=== PATIENT | male | born 1960 | race African-American/Black ===

== ENCOUNTER 2018-07-07 12:41 | Inpatient (IN) | payer OTHER, SELFPAY ==
[2018-07-07] MEDS ORDERED: Adacel (T-DAP) 0.5 ML VIAL ONE (13:01)
[2018-07-07] MEDS ORDERED: Dexamethasone 20 MG/5 ML VIAL ONE (13:06)
[2018-07-07] MEDS ORDERED: PROPOFOL 200 MG/20 ML VIAL ONE (13:06)
[2018-07-07] MEDS ORDERED: Ketorolac Tromethamine 30 MG/ML VIAL ONE (13:06)
[2018-07-07] MEDS ORDERED: Metoprolol Tartrate 5 MG/5 ML VIAL ONE (13:06)
[2018-07-07] MEDS ORDERED: Lidocaine 1% PF 5 ML VIAL ONE (13:06)
[2018-07-07] MEDS ORDERED: Ondansetron HCl/PF 4 MG/2 ML Vial ONE (13:06)
[2018-07-07] MEDS ORDERED: Fentanyl 100 MCG/2 ML VIAL ONE ×2 (13:10→20:47)
[2018-07-07] MEDS ORDERED: CEFAZOLIN/Water 2 GM/20 ML SYRINGE SLOW IVP SCH (13:15)
[2018-07-07 13:28] LABS: ALT (SGPT) 20 U/L (8-55); AST (SGOT) 26 U/L (5-34); Albumin 4.2 g/dL (3.5-5.0); Alkaline Phosphatase 70 U/L (40-150); Anion Gap 18 mmol/L (10-20); BUN (Urea Nitrogen) 16 mg/dL (8.4-25.7); Bilirubin, Total 1.6 mg/dL (0.2-1.2); Calc. Creatinine Clearance 0 mL/min (70-130); Calcium 9.2 mg/dL (7.8-10.44); Carbon Dioxide 18 mmol/L (22-29); Chloride 104 mmol/L (98-107); Estimated GFR-MDRD 46; Glucose 114 mg/dL (70-105); Potassium 3.4 mmol/L (3.5-5.1); Protein, Total 7.2 g/dL (6.0-8.3); Sodium 137 mmol/L (136-145)
[2018-07-07 13:29] LABS: CKMB 5.4 ng/mL (0-6.6); Troponin I Less than 0.010 ng/mL (< 0.028)
[2018-07-07] MEDS ORDERED: Gentamicin 80 MG/2 ML VIAL ONE (13:29)
[2018-07-07 13:42] LABS: PTT 26.6 SEC (22.9-36.1); Prothrombin Time 13.5 SEC (12.0-14.7)
[2018-07-07 13:43] LABS: #Eosinphils 0.1 thou/uL (0.0-0.7); #Lymphocytes 1.3 thou/uL (1.20-3.40); #Monocytes 0.7 thou/uL (0.11-0.59); #Neutrophils 6.6 thou/uL (1.40-6.50); %Basophils 0.2 % (0.0-1.0); %Monocytes 7.8 % (0.0-10.0); %Neutrophils 75.9 % (42.0-75.0); Mean Corpuscular HGB CONC 34.4 g/dL (32.0-36.0); Mean Corpuscular Hemoglobin 30.9 pg (27.0-31.0); Mean Corpuscular Volume 89.9 fL (78.0-98.0); Mean Platelet Volume 6.9 fL (7.4-10.4); Platelet Count 278 thou/uL (130-400); Red Blood Cell (RBC) Count 4.54 mill/uL (4.70-6.10); White Blood Cell (WBC) Count 8.7 thou/uL (4.8-10.8)
--- NOTE | 2018-07-07 13:48 | RAD ---
2 VIEWS LEFT FOREARM: Date: 07/07/18 HISTORY: Left forearm injury. FINDINGS: No fracture or dislocation is seen involving the left forearm. There is subcutaneous emphysema, as we ll as soft tissue defect seen involving the medial aspect of the left wrist, which has the appearance of laceration. No definite acute osseous abnormality is seen on this exam. Tiny olecranon enthesophy te is noted. IMPRESSION: 1. No acute osseous abnormality left forearm. 2. Laceration and soft tissue defect involving the subcutaneous soft tissues at the level of the med ial wrist. POS: [facility]
[2018-07-07 14:08] LABS: Bilirubin Negative (Negative); Blood, Urine Negative (Negative); Clarity CLEAR (Clear); Glucose, Urine (Dipstick) 100 mg/dL (Negative); Leukocyte Small (Negative); Nitrite Negative (Negative); Protein, Urine (Dipstick) Negative (Neg-Trace); Specific Gravity, Urine 1.009 (1.002-1.036); pH, Urine 6.5 (5.0-9.0)
[2018-07-07 14:11] LABS: Bacteria/HPF None Seen HPF (None Seen); RBC/HPF 0-3 HPF (0-3); Squamous Epithelial 0-3 HPF (0-3)
[2018-07-07 14:16] LABS: Pathc Cast-AUWi Flag 3.92 (0-2.49)
[2018-07-07 14:17] LABS: Hyaline Casts/LPF NONE SEEN LPF (0-3 Hyaline); Manual Microscopic Reviewed? No Path Casts Seen
[2018-07-07] MEDS ORDERED: hydrALAZINE 20 MG/ML VIAL ONE (14:44)
--- NOTE | 2018-07-07 15:08 | RAD ---
3 VIEWS LEFT WRIST: Date: 07/07/18 HISTORY: Trauma. Pain. FINDINGS: There appears to be irregularity and injury involving the proximal carpal row at the level of the tri quetral bone. Evaluation is somewhat limited. There appears to be a soft tissue injury with subcutane ous emphysema. Distal carpal row suggests possible hamate bone injury. IMPRESSION: Possible triquetral and hamate bone injury. Better interrogation with CT is recommended. There is ass ociated subcutaneous emphysema likely due to soft tissue injury. POS: [facility]
[2018-07-07] MEDS ORDERED: Morphine 4 MG/ML VIAL SLOW IVP PRN ×2 (15:43→16:42)
[2018-07-07] MEDS ORDERED: Ondansetron HCl/PF 4 MG/2 ML Vial IVP PRN ×2 (15:43→20:43)
[2018-07-07] MEDS ORDERED: Communication Order-Pharmacy FS PRN (15:43)
[2018-07-07] MEDS ORDERED: Hetastarch 6% 500 ML 0 ML ONE (16:15)
[2018-07-07] MEDS ORDERED: Betamet Acet/Betamet Na Ph 30 MG/5 ML VIAL ONE (16:15)
[2018-07-07] MEDS ORDERED: Bacitracin Zinc Ointment 30 gm TUBE ONE (16:15)
[2018-07-07] MEDS ORDERED: Sodium Chloride 0.9% 30 ML ONE (16:15)
[2018-07-07] MEDS ORDERED: Bupivacaine PF 0.5% 30 ML VIAL ONE (16:15)
[2018-07-07] MEDS ORDERED: Heparin 10,000 UNITS/1 ML VIAL ONE (16:15)
[2018-07-07] MEDS: Sodium Chloride 0.9% 1,000 ML IV SCH (16:21)
[2018-07-07 16:26] VITALS: BMI 26.2
[2018-07-07] MEDS ORDERED: Acetaminophen 500 MG TAB PO SCH (16:45)
[2018-07-07] MEDS ORDERED: Sodium Chloride 0.9% 20 ML ONE (17:26)
[2018-07-07] MEDS: traMADol HCl 50 MG TAB PO SCH (17:44)
[2018-07-07] MEDS: Acetaminophen 1,000 MG in Premix Bag 1 BAG IVPB SCH (17:44)
[2018-07-07] MEDS ORDERED: CEFAZOLIN/Water 2 GM/20 ML SYRINGE ONE (18:04)
--- NOTE | 2018-07-07 18:29 | HP-2 ---
DATE OF ADMISSION: 07/07/2018 REQUESTING PHYSICIAN: Dr. Caceres. ATTENDING SURGEON: Dr. Aldana. CONSULTATION: Dr. Angeles. 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 He states that he does not remember what happene d. When he was cutting the wood the next moment he had cut his left hand. States that he had immedi ate pain and went to the ER. On route, he received 10 mg of morphine and in the ER, he received 75 m cg of fentanyl. He currently reports minimal pain in that hand. PHYSICAL EXAMINATION: VITAL SIGNS: Upon admission to ER, blood pressure 151/103, pulse 58, respirations 16, temperature 97 .7, O2 98% on room air. Current vital signs: Blood pressure 177/108, pulse 86, respirations 15, tem perature 98.3, O2 sat 97 on room air. GENERAL: The patient is lying in bed, in no acute distress. HEENT: Normocephalic, atraumatic. EOMI, PERRLA bilaterally. Ears are atraumatic. Nose is atraumat ic. Oropharynx is clear. LUNGS: Clear to auscultation with no respiratory distress. No trauma or injury noted on the chest. CARDIOVASCULAR: Regular rate and rhythm with no murmurs. ABDOMEN: Soft, nontender with bowel sounds present. MUSCULOSKELETAL: Patient has full range of motion in all 4 extremities with the exception of no exte nsion in his left hand, left fingers. EXTREMITIES: Neurovascularly intact x4. Cap refill is present in all 5 digits of his left hand. On his left forearm, there is a laceration involving the extensor tendons, currently bandaged. BACK: Atraumatic with normal range of motion. LABORATORY DATA: CBC: White blood cell count is 8.7, hemoglobin 14.0, hematocrit 40.8, MCV 89.9, pl atelet count 278. PT is 13.5, INR 1.0, aPTT 26.6. Sodium 137, potassium 3.4, chloride 104, bicarbon ate 18, BUN 16, creatinine 1.84 with no baseline to compare to. Glucose is 114, CK-MB is 5.4. Tropo shan is less than 0.010. His urine is positive for glucose, ketones, leukocyte esterase, white blood cells, no bacteria seen. RADIOGRAPHIC FINDINGS: Two view of the left forearm shows no acute osseous abnormality of the forear m, laceration of soft tissue defect involving the subcutaneous soft tissues at the level of the media l wrist. Forearm x-ray three-view shows possible triquetral and hamate bone injury. CT recommended if there is suspicion. ASSESSMENT: 1. Status post traumatic injury with circular saw. 2. Laceration involving flexor tendons of the left forearm. 3. Acute pain related to trauma. 4. History of hypertension. 5. History of depression. PLAN: We will admit to the Surgery team. Patient will undergo orthopedic surgery with Dr. Angeles later today. We will control his pain. Provide deep vein thrombosis and gastrointestinal prophylaxi s. We also have OT and PT evaluate and treat the patient. Dr. Aldana saw this patient. We discussed the treatment plan.
[2018-07-07] MEDS ORDERED: Midazolam HCl 2 mg/2 ml Vial ONE (20:47)
[2018-07-07] MEDS ORDERED: Sodium Chloride 0.9% 10 ML ONE (22:37)
[2018-07-08] MEDS ORDERED: Ketorolac Tromethamine 30 MG/ML VIAL ONE (00:42)
[2018-07-08] MEDS ORDERED: Meperidine HCl/PF 25 MG/ML VIAL IM PRN (01:09)
[2018-07-08] MEDS ORDERED: Ketorolac Tromethamine 30 MG/ML VIAL IVP PRN (01:09)
[2018-07-08] MEDS ORDERED: Milk Of Magnesia 30 ML UDCUP PO PRN (01:10)
[2018-07-08] MEDS ORDERED: Ondansetron HCl/PF 4 MG/2 ML Vial IV PRN (01:10)
[2018-07-08] MEDS ORDERED: Bisacodyl 10 MG SUPP PR PRN (01:10)
[2018-07-08] MEDS ORDERED: Communication Order-Pharmacy FS PRN (01:15)
[2018-07-08] MEDS: Acetaminophen 1,000 MG in Premix Bag 1 BAG IVPB SCH ×2 (01:40→05:05)
[2018-07-08] MEDS: Sodium Chloride 0.9% 1,000 ML IV SCH ×4 (01:40→20:52)
[2018-07-08] MEDS: traMADol HCl 50 MG TAB PO SCH ×5 (01:41→23:31)
[2018-07-08] MEDS: Vancomycin HCl 1.25 GM in Sodium Chloride 0.9% 250 ML 250 ML IVPB SCH (01:50)
[2018-07-08 05:42] LABS: #Basophils 0.1 thou/uL (0.0-0.2); #Lymphocytes 0.3 thou/uL (1.20-3.40); #Monocytes 0.2 thou/uL (0.11-0.59); #Neutrophils 7.4 thou/uL (1.40-6.50); %Basophils 1.3 % (0.0-1.0); %Eosinophils 0.1 % (0.0-10.0); %Lymphocytes 3.7 % (21.0-51.0); %Monocytes 2.9 % (0.0-10.0); %Neutrophils 92.1 % (42.0-75.0); Hemoglobin 13.1 g/dL (14.0-18.0); Mean Corpuscular HGB CONC 33.7 g/dL (32.0-36.0); Mean Corpuscular Hemoglobin 30.7 pg (27.0-31.0); Mean Corpuscular Volume 91.2 fL (78.0-98.0); Platelet Count 243 thou/uL (130-400); Red Blood Cell (RBC) Count 4.26 mill/uL (4.70-6.10)
[2018-07-08 06:07] LABS: ALT (SGPT) 16 U/L (8-55); AST (SGOT) 17 U/L (5-34); Albumin 3.6 g/dL (3.5-5.0); Alkaline Phosphatase 65 U/L (40-150); Anion Gap 12 mmol/L (10-20); BUN (Urea Nitrogen) 14 mg/dL (8.4-25.7); Bilirubin, Total 0.9 mg/dL (0.2-1.2); Calc. Creatinine Clearance 68 mL/min (70-130); Calcium 8.2 mg/dL (7.8-10.44); Carbon Dioxide 23 mmol/L (22-29); Chloride 104 mmol/L (98-107); Estimated GFR-MDRD 61; Globulin 2.7 g/dL (2.4-3.5); Glucose 132 mg/dL (70-105); Protein, Total 6.3 g/dL (6.0-8.3); Sodium 135 mmol/L (136-145)
--- NOTE | 2018-07-08 07:37 | RAD ---
SIX FLUOROSCOPIC SPOT IMAGES OF THE LEFT WRIST: INDICATION: Left hand fracture and tendon repair. COMPARISON: Left wrist radiograph 07/07/18. FINDINGS: The minimally displaced fractures involving the left triquetrum and left hamate are unchanged from th e radiographic evaluation. Extensive soft tissue maceration overlying the ulnar aspect of the wrist carpus, likely from a full-thickness laceration, is similar appearing. Subsequent images in the fluo roscopic series demonstrate placement of a suture anchor within the lateral base of the small finger metacarpal likely for tendon reattachment. IMPRESSION: 1. Fluoroscopic C-arm images for tendon repair to the base of the small finger metacarpal. 2. Minimally displaced fractures of the triquetrum and hamate appear similar to the radiographic juan antonio luation dated 07/07/18. POS: [facility]
[2018-07-08] MEDS: Famotidine/PF 20 mg/2ml Vial SLOW IVP SCH (08:42)
[2018-07-08] MEDS ORDERED: Vancomycin HCl 1 GM in Premix Bag 1 BAG IVPB SCH (09:00)
[2018-07-08] MEDS ORDERED: TETANUS AND DIPHTHERIA TOX/PF 0.5 ML DISP.SYRIN IM SCH (09:00)
[2018-07-08] MEDS ORDERED: Aspirin 81 mg Enteric Coated Tablet PO SCH (09:00)
[2018-07-08] MEDS ORDERED: Amlodipine 5 MG TAB PO SCH (09:00)
[2018-07-08] MEDS ORDERED: Non-Formulary Item 1 EACH (Amlodipine Besylate [Amlodipine Besylate] 2.5 MG) PO SCH (09:00)
[2018-07-08] MEDS: Acetaminophen 500 MG TAB PO SCH ×3 (10:09→20:49)
[2018-07-08] MEDS: Lisinopril 20 MG TAB PO SCH (10:09)
[2018-07-08] MEDS: Senokot 8.6 MG TAB PO SCH ×2 (10:09→20:50)
[2018-07-08] MEDS: Finasteride 5 MG TAB PO SCH (10:09)
[2018-07-08] MEDS: Hydrochlorothiazide 25 MG TAB PO SCH (10:10)
[2018-07-08] MEDS: Gabapentin 300 MG CAP PO SCH ×3 (10:10→20:49)
[2018-07-08] MEDS: Citalopram 20 MG TAB PO SCH (10:10)
[2018-07-08] MEDS: Enoxaparin Sodium 40 MG/0.4 ML SYRINGE SC SCH (10:10)
[2018-07-08] MEDS: Polyethylene Glycol 3350 17 GM Packet PO SCH (10:12)
--- NOTE | 2018-07-08 13:49 | PRG-2 ---
DATE OF SERVICE: 07/08/2018 SUBJECTIVE: This is a 57-year-old male, hospital day 1, postoperative day 1 washout and repair of left forearm injury secondary to a skill saw. The patient reports that he is currentl y pain free. He is able to move his hand. The patient denies any chest pain, any trouble breathing, nausea, vomiting or belly pain. PHYSICAL EXAMINATION: VITAL SIGNS: Temperature 98.0, respirations 18, pulse 69, O2 sat 95, BP 172/106. GENERAL: The patient is lying back in bed in no acute distress. CARDIOVASCULAR: Regular rate and rhythm with no murmurs. LUNGS: Clear to auscultation with no respiratory distress. MUSCULOSKELETAL: The patient's left hand is currently bandaged. The patient has movement in his lef t hand, both flexion and extension. Currently, the patient's hand is splinted in extension. EXTREMITIES: The patient is neurovascularly intact x4. Cap refill less than 2 seconds in all 4 extr emities. LABORATORY DATA: White blood cell count 8.0, hemoglobin 13.1, hematocrit 38.8, MCV 91.2, platelets 2 43. Sodium 135, potassium 4.0, chloride 104, bicarbonate 23, BUN 14, creatinine 1.44, glucose 132. ASSESSMENT: 1. Status post traumatic injury with circular saw. 2. Laceration involving flexor tendons as well as cubital bones, postoperative day 1 washout and rep air. 3. Acute pain relative to above, controlled. 4. History of hypertension. 5. History of depression. 6. Acute kidney injury, improving. PLAN: The patient's blood pressure was elevated this morning. We are continuing his blood pressure medications and we will reevaluate. We will continue providing pain control and supportive care. Th e patient is on deep venous thrombosis and gastrointestinal prophylaxis. Dr. Aldana saw this patient. We discussed the treatment plan.
[2018-07-09] MEDS: Vancomycin HCl 1.25 GM in Sodium Chloride 0.9% 250 ML 250 ML IVPB SCH (02:08)
[2018-07-09] MEDS: Acetaminophen 500 MG TAB PO SCH ×4 (02:08→21:56)
[2018-07-09] MEDS: traMADol HCl 50 MG TAB PO SCH ×4 (05:36→23:49)
[2018-07-09] MEDS: Sodium Chloride 0.9% 1,000 ML IV SCH (05:37)
[2018-07-09 07:35] LABS: Anion Gap 10 mmol/L (10-20); BUN (Urea Nitrogen) 7 mg/dL (8.4-25.7); Calc. Creatinine Clearance 113 mL/min (70-130); Carbon Dioxide 26 mmol/L (22-29); Chloride 106 mmol/L (98-107); Estimated GFR-MDRD Greater than 90; Glucose 86 mg/dL (70-105); Potassium 3.4 mmol/L (3.5-5.1); Sodium 139 mmol/L (136-145)
[2018-07-09] MEDS ORDERED: Amlodipine 5 MG TAB PO SCH (08:19)
[2018-07-09] MEDS: Lisinopril 20 MG TAB PO SCH (08:26)
[2018-07-09] MEDS: Famotidine/PF 20 mg/2ml Vial SLOW IVP SCH (08:26)
[2018-07-09] MEDS: Hydrochlorothiazide 25 MG TAB PO SCH (08:26)
[2018-07-09] MEDS: Enoxaparin Sodium 40 MG/0.4 ML SYRINGE SC SCH (08:26)
[2018-07-09] MEDS: Amlodipine 10 MG TAB PO SCH (08:27)
[2018-07-09] MEDS: Finasteride 5 MG TAB PO SCH (08:27)
[2018-07-09] MEDS: Gabapentin 300 MG CAP PO SCH ×3 (08:27→21:56)
[2018-07-09] MEDS: Senokot 8.6 MG TAB PO SCH ×2 (08:27→21:56)
[2018-07-09] MEDS: Citalopram 20 MG TAB PO SCH (08:31)
[2018-07-09] MEDS: Polyethylene Glycol 3350 17 GM Packet PO SCH (08:32)
--- NOTE | 2018-07-09 10:58 | OP ---
DATE OF PROCEDURE: The procedure began on 07/07/2018 and finished after midnight on 07/08/2018. PREOPERATIVE DIAGNOSES: 1. Left hand saw injury with a 15 cm wound. 2. Left extensor digitorum comminus to the index, middle, ring, and small finger, extensor indicis p roprius, extensor digiti minimus, small finger intrinsic, and extensor carpal ulnaris laceration. 3. Left small finger superficial ulnar nerve laceration, superficial ulnar nerve and radial nerve la ceration. 4. Open fracture of triquetrum capitate and hamate secondary to compression from the saw, incomplete . 5. Open wrist joint, mid carpal joint, and retinaculum lacerations. POSTOPERATIVE DIAGNOSES: 1. Left hand saw injury with a 15 cm wound. 2. Left extensor digitorum comminus to the index, middle, ring, and small finger, extensor indicis p roprius, extensor digiti minimus, small finger intrinsic, and extensor carpal ulnaris laceration. 3. Left small finger superficial ulnar nerve laceration, superficial ulnar nerve and no superficial radial nerve laceration. 4. Open fracture of triquetrum capitate and hamate secondary to compression from the saw and complet e. 5. Open wrist joint, mid carpal joint, and retinaculum lacerations. PROCEDURES PERFORMED: 1. Debridement of 15 cm wound. 2. Closure complex 15 cm wound. 3. Debridement of material associated with open fracture for the capitate, hamate and triquetrum. 4. Debridement of wrist joint deep. 5. Repair of the wrist joint capsule. 6. Repair mid carpal joint capsule. 7. Retinaculum repair. 8. Open treatment of fractured triquetrum. 9. Open treatment of fracture capitate. 10. Open treatment of fractured hamate. 11. Superficial radial nerve neuroplasty under microscope. 12. Superficial ulnar nerve neuroplasty, microscopic. 13. Superficial ulnar nerve repair, microscopic. 14. Left extensor digitorum comminus to the index finger repair. 15. Left middle finger extensor digitorum comminus repair. 16. Left ring finger extensor digitorum comminus repair. 17. Left small finger extensor digitorum comminus repair. 18. Left extensor indices proprius repair. 19. Left extensor digiti minimus small finger repair. 20. Left small finger intrinsic repair. 21. Left extensor carpi ulnaris repair. 22. Application of splint. 23. C-arm supervision for approximately 2 hours. SURGEON: Dr. Cr Angeles ANESTHESIA: Faroese Anesthesia. SPECIMENS REMOVED: Small amount of debris and some chondral poor species from the compression fractu re from the saw in the mid carpal bones. ESTIMATED BLOOD LOSS: 25 mL. TOURNIQUET TIME: 116 minutes at 250 mmHg pressure. DESCRIPTION OF PROCEDURE: After successful general LMA technique, the limb was prepped and draped. The patient had timeout done appropriately and the consent matched the injury which matched the histo ry and physical. We then immediately prepped and draped the limb, and outlined a zigzag incision to maximize extension where we took the distal wound radially and the proximal wound from radial to ulna r. We then had carried this through skin and subcutaneous tissue and identified the superficial ulna r nerve and did neuroplasty under magnification and then superficial radial nerve under magnification neuroplasty, found the radial nerve was not lacerated. Extensor pollicis brevis in its own compartm ent was not lacerated. We did, however, find retinacular lacerations and capsule lacerations of the mid carpal joint and radiocarpal joint involving complete lacerations of the following tendons: Exte nsor digitorum communis to the index finger, extensor digitorum communis to the long finger, extensor digitorum communis to the ring finger, extensor digitorum communis to the small finger, extensor ind icis proprius, extensor digiti minimi, intrinsic hypothenar muscle x1, but no muscle injury past the level of the radial to the pisiform whatsoever, none in line with the pisiform. This was the abducto r digiti minimi. The patient then had debridement of material associated with open fracture of the triquetrum, hamate, and lunate. Here, there were midway fracture of the hamate, triquetral ulnar body fracture, and mi nimal impression fracture the saw in the capitate with chondral surfaces loss, approximately 30% of t he depth of the neck of the capitate was lost, but the capitate itself was a structure as were the other bones. We then finished debridement of the material associated with each of these open fra ctures and the wound using the following techniques: A. Excisional technique. B. Instrumentation using curet, tenotomy scissors, Adson's, as well as 5 liters of normal saline Pul savac. Initially for debridement with antibiotics inside and then an additional 2 liters at the end of procedure. C. There was minimal gross contamination. D. Excisional technique was successful without complication. Once this was finished, we then dried the wound, and then began to actually contain by putting a stay stitch in the skin and reflected retinaculum along his laceration lines until we could see all 6 ext ensor tendons, and all of the intrinsics and found there was no laceration beyond the most lateral on e. We then began a series of 3 different [id number] sutures, beginning in order from radial to ulna that held excellent tension with attempt at flexion of the MP joints and PIP joints. Also, we notic ed that the joint capsule was lacerated as well as the ulnar intrinsic but there is no evidence of ne urologic deficit here, but the superficial ulnar nerve had a complete laceration just proximal to its branch points. The ECU sheath was also lacerated open and we found the extensor digiti minimi in its own compartment . We performed a debridement, again we repaired the extensor digitorum comminus of each finger with multiple or 3 different loops of 4-0 [id number]-ngshi, the extensor indices proprius and extensor digi ti minimi same technique, and then we prepared the extensor carpal ulnaris for repair using both kaity use it is only 4 mm remnant, 5 mm remnant, both the limb side technique, A strand as well as the use of an anchor in the base of metacarpal identified by the C-arm. The C-arm was also used to identify that the fractures were not complete earlier in this operation before we performed the open treatmen t of all three of the fractures under direct visualization. Now that we had now repaired and fixed a ll the tendons, we then used a heavy [id number] used a #2 Ethibond with an OS4 needle to perform a mid carpal joint capsule repair, radiocarpal capsule repair, and at this point, there was no laxit y whatsoever, click or clunk. We closed the capsule over the hamate, the triquetrum and hamate to ca pitate and there was no evidence of lunate damage. There was no evidence of ulnar nerve deep primary artery and branch laceration when we closed this gap. Now that we closed the open treatment of all three fracture triquetrum, capitate and hamate, we repaired all the tendons using appropriate techniq ues, as well as the superficial ulnar nerve and finished neuroplasty, we now completed all of the ext ensor repair using the same technique. This was true except for the fact that we had given the Vijay ine for pain relief we had now listed all procedures. We then now had a 15 cm wound, with all of the repairs completed listed above and the fingers now in hyperextension the MP joints including the sma ll, index, ring and long. No change in the thumb. We then had to release to tourniquet after repair the ulnar intrinsics. Using #2 Ethibond it was 4 sutures in an interrupted qfowig-qo-mielt. We the n were able to repair the primary wrist joint capsule with the same imnvet-rb-tfpth Ethibond and then we repaired the retinaculum in all levels through the part that was lacerated back to itself bearing the third dorsal compartment with no complications. We now released the tourniquet, we visualized n o deep bleeding, visualized no evidence of ulnar nerve laceration deep, and placed a Hemovac drain sm all under the distal portion of the incision and closure, and then closed the wrist joint capsule wit h the same 2-0 Vicryl we did with the retinaculum on the same needle and performed a final closure ov er this drain, it was in the center of the wound coming back dorsally. There was no undue evidence f or application problems or any evidence of fixation during the closure wound which was accomplished w ith the tourniquet deflated and with a 4-0 Monocryl in some of the closure deep and an epidermal clos ure with 4-0 nylon interrupted mattress pattern. A bulky dressing was applied, I applied a short arm splint, the patient left the operating room without evidence of anesthetic or operative complication .
--- NOTE | 2018-07-09 21:37 | PRG-2 ---
DATE OF SERVICE: 07/09/2018 SUBJECTIVE: This is a 57-year-old -[place] male, hospital day 2, postop day #1, washout and repair of left forearm secondary to a skill saw. Patient reports that his pain comes and goes, but _ ____ at its worse. He states he is able to move his hand, denies any chest pain, trouble breathing, nausea or vomiting. PHYSICAL EXAMINATION: VITAL SIGNS: Temperature 97.8, respirations 16, pulse 72, O2 sat 95% on room air, blood pressure 163 /97. GENERAL: The patient is sitting up in bed in no acute distress. CARDIOVASCULAR: Heart regular rate and rhythm with no murmurs. LUNGS: Clear to auscultation with no respiratory distress. MUSCULOSKELETAL: The patient's left hand is currently bandaged with drain in plane. There is serosa nguineous drainage. EXTREMITIES: Patient has movement of his left hand with both flexion and extension. Patient has ___ __ in all 5 fingers. Cap refill is less than 2 seconds in all 4 extremities. The patient was neurov ascularly intact in all 4 extremities. LABORATORY DATA: Sodium 139, potassium 3.4, chloride 106, bicarb 26, BUN 17, creatinine 0.87, glucos e 86. RADIOGRAPHIC: No new images reviewed today. ASSESSMENT: 1. Status post traumatic head injury with circular shot. 2. Laceration involving flexor tendon as well as cubital bones and wrist joints postoperative day tw o washout and repair. 3. Acute pain related to above, controlled. 4. History of hypertension. 5. History of depression. 6. History of acute kidney injury. The patient's blood pressure was elevated today and we increased his amlodipine to 10 mg. We will reevaluate. The patient's kidney function is improving as noted i n the labs above. We will continue to provide DVT and GI prophylaxis as well as pain control and sup portive care. Patient will be discharged pending Orthopedics approval. Dr. Aldana saw the patient. We discussed the treatment and plan.
[2018-07-10] MEDS: Vancomycin HCl 1.25 GM in Sodium Chloride 0.9% 250 ML 250 ML IVPB SCH ×2 (01:56→14:43)
[2018-07-10] MEDS: Acetaminophen 500 MG TAB PO SCH ×4 (02:04→21:09)
[2018-07-10] MEDS: traMADol HCl 50 MG TAB PO SCH ×4 (05:12→23:39)
[2018-07-10 05:49] LABS: Anion Gap 11 mmol/L (10-20); BUN (Urea Nitrogen) 9 mg/dL (8.4-25.7); Calc. Creatinine Clearance 88 mL/min (70-130); Carbon Dioxide 31 mmol/L (22-29); Chloride 99 mmol/L (98-107); Estimated GFR-MDRD 81; Glucose 87 mg/dL (70-105); Magnesium 2.2 mg/dL (1.6-2.6); Phosphorus 4.6 mg/dL (2.3-4.7); Potassium 3.4 mmol/L (3.5-5.1); Sodium 138 mmol/L (136-145)
[2018-07-10] MEDS: Potassium Chloride 20 MEQ TAB PO SCH ×2 (08:48→17:41)
[2018-07-10] MEDS: Finasteride 5 MG TAB PO SCH (08:48)
[2018-07-10] MEDS: Lisinopril 20 MG TAB PO SCH (08:48)
[2018-07-10] MEDS: Amlodipine 10 MG TAB PO SCH (08:49)
[2018-07-10] MEDS: Senokot 8.6 MG TAB PO SCH ×2 (08:51→21:10)
[2018-07-10] MEDS: Hydrochlorothiazide 25 MG TAB PO SCH (08:51)
[2018-07-10] MEDS: Polyethylene Glycol 3350 17 GM Packet PO SCH (08:52)
[2018-07-10] MEDS: Citalopram 20 MG TAB PO SCH (08:52)
[2018-07-10] MEDS: Famotidine/PF 20 mg/2ml Vial SLOW IVP SCH (08:52)
[2018-07-10] MEDS: Gabapentin 300 MG CAP PO SCH ×3 (08:52→21:09)
[2018-07-10] MEDS: Enoxaparin Sodium 40 MG/0.4 ML SYRINGE SC SCH (08:52)
--- NOTE | 2018-07-10 13:35 | DIS-2 ---
DATE OF ADMISSION: 07/07/2018 DATE OF DISCHARGE: 07/10/2018. ADMITTING TEAM: Trauma, Dr. Hakan Aldana. RESIDENT: Dr. Damián Dolan DISCHARGING TEAM: Dr. Hakan Aldana RESIDENT: Dr. Damián Dolan CONSULTATIONS: Dr. Angeles. PROCEDURES: 1. Two view left forearm shows no acute osseous abnormality. Left forearm; laceration, soft tissue defect involving subcutaneous soft tissues at the level of the medial wrist. 2. Three views left wrist, possible triquetral and hamate bone injury. Interrogation with CT recomm ended. 3. Fluoroscopic intraoperative images shows minimally displaced fracture of the triquetrum and the h amate similar to radiographic evaluation on the . OPERATIVE PROCEDURES: Performed by Dr. Angeles: Debridement of 15 cm wound, closure of complex 15 cm wound, debridement of material associated with open fracture of the capitate hamate and triquetrum , debridement of wrist joint deep, repair of wrist joint capsule, repair of the mid carpal joint caps ule, retinaculum repair, open treatment of fractured triquetrum, open treatment of fracture capitate, open treatment of fractured hamate, superficial radial nerve neuroplasty under microscope, superfici al ulnar nerve neuroplasty microscopic, superficial ulnar nerve repair microscopic, left extensor dig itorum communis to left index finger repair, left middle finger extensor digitorum communis repair, l eft ring finger extensor digitorum, was repaired, left small finger extensor digitorum was repaired, left extensor indices proprius repair. All left extensor digiti minimus repair, left small finger in trinsic repair, left extensor carpi ulnaris repair, application of splint, C-arm supervision for appr oximately 2 hours. PRIMARY DIAGNOSES: Left hand saw injury, left extensor tendons laceration, ulnar and radial nerve la ceration, open fracture of the triquetrum, capitate and hamate bones, open wrist joint and mid carpal joint and retinaculum lacerations. SECONDARY DIAGNOSES: Hypertension, depression. DISCHARGE MEDICATIONS: 1. Tylenol 1000 mg q.6 hours. 2. Amlodipine 10 mg p.o. daily. 3. Citalopram 20 mg daily. 4. Finasteride 5 mg p.o. daily. 5. Gabapentin 300 mg t.i.d. 6. Hydrochlorothiazide 25 mg daily. 7. Lisinopril 20 mg q.a.m. 8. Tramadol 100 mg q.6 hours. 9. Hydrocodone 7.5. 10. [place] 7.5. 11. Meloxicam 15 mg p.o. daily. 12. Bactrim 1 p.o. q.12 hours. BRIEF HISTORY OF PRESENT ILLNESS/HOSPITAL COURSE: This is a 57-year-old male who st ates he was refurbishing a house and cut his hand with a skill saw. He does not remember what happen ed, just that the skill saw slipped. The patient who was transferred to the ER via EMS where his aye n was controlled. Dr. Angeles took the patient back for surgery that day for repair and exploration of the wounds as noted above. While the patient was here, his pain was controlled. The patient rec eived occupational therapy to improve function after discharge. At the time of discharge, temperature was 97.7, pulse 75, blood pressure 149/86, respirations 20, O2 sat 95% on room air. While the patient was here, the patient's blood pressure was elevated. We incr eased his amlodipine from 2.5 to 10 mg per day and instructed the patient to follow up with PCP qiana wiley that change. LABORATORY DATA: At the time of discharge, sodium 131, potassium 3.4, chloride 99, bicarbonate 31, B UN 9, creatinine 1.12, which is baseline for patient, glucose 87, phosphorus 4.6, magnesium 2.2. DISPOSITION: Stable. DISCHARGE INSTRUCTIONS: 1. Location: Home. 2. Diet: Heart healthy. 3. Activity: The patient must wear a sling while not bed until meeting with Dr. Angeles in 1 week. The patient also cannot lift anything heavier or hold anything heavier than 5 pounds in the left conde nd. 4. Follow up with Dr. Angeles in 1 week, and with primary care physician in 1-2 weeks.
[2018-07-11] MEDS: Vancomycin HCl 1.25 GM in Sodium Chloride 0.9% 250 ML 250 ML IVPB SCH ×2 (02:28→14:52)
[2018-07-11] MEDS: Acetaminophen 500 MG TAB PO SCH ×3 (02:28→17:34)
[2018-07-11] MEDS: traMADol HCl 50 MG TAB PO SCH ×3 (06:23→17:34)
[2018-07-11] MEDS: Hydrochlorothiazide 25 MG TAB PO SCH (07:54)
[2018-07-11] MEDS: Finasteride 5 MG TAB PO SCH (07:54)
[2018-07-11] MEDS: Lisinopril 20 MG TAB PO SCH (07:54)
[2018-07-11] MEDS: Amlodipine 10 MG TAB PO SCH (07:55)
[2018-07-11] MEDS: Citalopram 20 MG TAB PO SCH (07:55)
[2018-07-11] MEDS: Potassium Chloride 20 MEQ TAB PO SCH ×2 (07:55→17:33)
[2018-07-11] MEDS: Gabapentin 300 MG CAP PO SCH ×2 (07:55→17:34)
[2018-07-11] MEDS: Senokot 8.6 MG TAB PO SCH (07:56)
[2018-07-11] MEDS: Polyethylene Glycol 3350 17 GM Packet PO SCH (07:56)
[2018-07-11] MEDS: Famotidine/PF 20 mg/2ml Vial SLOW IVP SCH (07:57)
[2018-07-11] MEDS: Enoxaparin Sodium 40 MG/0.4 ML SYRINGE SC SCH (07:57)
[2018-07-11 15:59] VITALS: BP 157/84; TEMP 98.2
--- NOTE | 2018-07-12 13:22 | EKG ---
Test Reason : PRE-OP Blood Pressure : / mmHG Vent. Rate : 078 BPM Atrial Rate : 078 BPM P-R Int : 240 ms QRS Dur : 100 ms QT Int : 402 ms P-R-T Axes : 061 -05 152 degrees QTc Int : 458 ms Sinus rhythm with 1st degree A-V block Possible Left atrial enlargement T wave abnormality, consider anterolateral ischemia Abnormal ECG Lateral T wave inversions Confirmed by KENDRA AGUILAR ([id number]), website/blog editor MARSHA ROY ([id number]) on 07/12/2018 1:21:51 PM Referred By: DO AGUILAR Confirmed By:KENDRA AGUILAR
== END 2018-07-11 20:45 | disposition home or self-care (01) | DRG 501 ==
LOC: ERS 12:41 → SURG A 13:37
PROVIDERS: ADMIT Surgery; ATTEND Surgery
PROC: 0LQ80ZZ Repair Left Hand Tendon, Open Approach (ICD-10-PCS; principal; 2018-07-07)
PROC: 0LQ60ZZ Repair Left Lower Arm and Wrist Tendon, Open Approach (ICD-10-PCS; 2018-07-07)
PROC: 01Q40ZZ Repair Ulnar Nerve, Open Approach (ICD-10-PCS; 2018-07-07)
PROC: 0RQR0ZZ Repair Left Carpal Joint, Open Approach (ICD-10-PCS; 2018-07-07)
PROC: 0RQP0ZZ Repair Left Wrist Joint, Open Approach (ICD-10-PCS; 2018-07-07)
DX: S62.112B Displaced fracture of triquetrum [cuneiform] bone, left wrist, initial encounter for open fracture (principal); S56.222A Laceration of other flexor muscle, fascia and tendon at forearm level, left arm, initial encounter; S66.321A Laceration of extensor muscle, fascia and tendon of left index finger at wrist and hand level, initial encounter; S66.323A Laceration of extensor muscle, fascia and tendon of left middle finger at wrist and hand level, initial encounter; S66.325A Laceration of extensor muscle, fascia and tendon of left ring finger at wrist and hand level, initial encounter; S66.327A Laceration of extensor muscle, fascia and tendon of left little finger at wrist and hand level, initial encounter; N17.9 Acute kidney failure, unspecified; S62.142B Displaced fracture of body of hamate [unciform] bone, left wrist, initial encounter for open fracture; S51.812A Laceration without foreign body of left forearm, initial encounter; W29.8XXA Contact with other powered hand tools and household machinery, initial encounter; I10 Essential (primary) hypertension; F41.9 Anxiety disorder, unspecified; S64.02XA Injury of ulnar nerve at wrist and hand level of left arm, initial encounter; S64.22XA Injury of radial nerve at wrist and hand level of left arm, initial encounter
CPT/HCPCS: 29125; 36415; 76001; 80048; 80053; 80202; 81003; 81015; 82553; 83735; 84100; 84484; 85025; 85610; 85730; 86850; 86900; 86901; 90471; 90715; 93005; 96361; 96365; 96375; A4216; C1713; G0390; G8987-GO-CI; G8988-GO-CI; G8989-GO-CI; J0131; J0360; J0702; J1100; J1580; J1644; J1650; J1885; J2001; J2250; J2270; J2405; J2704; J3010; J3370; J3490; J7050; S0020; S0028

== ENCOUNTER 2018-07-13 02:16 | Inpatient (IN) | payer OTHER, SELFPAY ==
[2018-07-13] MEDS ORDERED: Ketorolac Tromethamine 30 MG/ML VIAL ONE ×2 (03:26→10:06)
[2018-07-13] MEDS ORDERED: Morphine 4 MG/ML VIAL ONE (03:26)
[2018-07-13] MEDS ORDERED: Ondansetron HCl/PF 4 MG/2 ML Vial ONE ×2 (03:35→16:07)
[2018-07-13 04:19] LABS: #Eosinphils 0.2 thou/uL (0.0-0.7); #Lymphocytes 1.6 thou/uL (1.20-3.40); #Monocytes 0.4 thou/uL (0.11-0.59); #Neutrophils 5.1 thou/uL (1.40-6.50); %Basophils 0.4 % (0.0-1.0); %Eosinophils 3.2 % (0.0-10.0); %Lymphocytes 21.9 % (21.0-51.0); %Monocytes 5.6 % (0.0-10.0); %Neutrophils 68.9 % (42.0-75.0); Hemoglobin 15.2 g/dL (14.0-18.0); Mean Corpuscular HGB CONC 33.9 g/dL (32.0-36.0); Mean Corpuscular Hemoglobin 30.7 pg (27.0-31.0); Mean Corpuscular Volume 90.5 fL (78.0-98.0); Mean Platelet Volume 6.8 fL (7.4-10.4); Platelet Count 356 thou/uL (130-400); Red Blood Cell (RBC) Count 4.94 mill/uL (4.70-6.10); White Blood Cell (WBC) Count 7.4 thou/uL (4.8-10.8)
[2018-07-13 04:37] LABS: Bilirubin Negative (Negative); Blood, Urine Negative (Negative); Clarity CLEAR (Clear); Glucose, Urine (Dipstick) Negative (Negative); Leukocyte Negative (Negative); Nitrite Negative (Negative); Protein, Urine (Dipstick) Negative (Neg-Trace)
[2018-07-13 04:38] LABS: ALT (SGPT) 21 U/L (8-55); AST (SGOT) 32 U/L (5-34); Acetaminophen Less than 6.0 mcg/mL (10.0-30.0); Albumin 4.6 g/dL (3.5-5.0); Alcohol 16 mg/dL (Less than 10); Alkaline Phosphatase 83 U/L (40-150); Anion Gap 17 mmol/L (10-20); BUN (Urea Nitrogen) 12 mg/dL (8.4-25.7); Bilirubin, Total 0.9 mg/dL (0.2-1.2); CK (CPK) 283 U/L (30-200); Calc. Creatinine Clearance 0 mL/min (70-130); Calcium 10.3 mg/dL (7.8-10.44); Carbon Dioxide 25 mmol/L (22-29); Chloride 99 mmol/L (98-107); Estimated GFR-MDRD 89; Globulin 3.8 g/dL (2.4-3.5); Glucose 92 mg/dL (70-105); Potassium 3.7 mmol/L (3.5-5.1); Protein, Total 8.4 g/dL (6.0-8.3); Salicylate Less than 8.0 mg/dL (15.0-30.0); Sodium 137 mmol/L (136-145)
[2018-07-13 04:46] LABS: Medtox Reader # READER 1
[2018-07-13 04:47] LABS: Amphetamine Not Detected (NotDetected); Barbiturates Screen Not Detected (NotDetected); Benzodiazepine Screen Not Detected (NotDetected); Cocaine Metabolite Screen Detected (NotDetected); Medtox Control Line Valid? VALID (VALID); Methadone Not Detected (NotDetected); Methamphetamine Not Detected (NotDetected); Opiate Screen Detected (NotDetected); Oxycodone Screen Not Detected (NotDetected); Phencyclidine (PCP) Not Detected (NotDetected); THC/Cannabinoid Screen Not Detected (NotDetected); Tricyclic Screen Not Detected (NotDetected)
[2018-07-13] MEDS ORDERED: Pregabalin 50 MG CAP PO SCH (10:00)
[2018-07-13] MEDS ORDERED: Midazolam HCl 2 mg/2 ml Vial ONE (12:18)
[2018-07-13] MEDS ORDERED: Fentanyl 100 MCG/2 ML VIAL ONE ×2 (12:18→14:45)
[2018-07-13] MEDS ORDERED: Sodium Chloride 0.9% 30 ML ONE (13:51)
[2018-07-13] MEDS ORDERED: Thrombin 5000 UNITS/5 ML VIAL ONE (13:51)
[2018-07-13] MEDS ORDERED: Bacitracin Zinc Ointment 30 gm TUBE ONE (13:51)
[2018-07-13] MEDS ORDERED: Bupivacaine PF 0.5% 30 ML VIAL ONE (13:51)
[2018-07-13] MEDS ORDERED: Morphine 4 MG/ML VIAL SLOW IVP PRN (15:43)
[2018-07-13] MEDS ORDERED: Ondansetron HCl/PF 4 MG/2 ML Vial IV PRN (15:43)
[2018-07-13] MEDS ORDERED: Bisacodyl 10 MG SUPP PR PRN (15:43)
[2018-07-13] MEDS ORDERED: Milk Of Magnesia 30 ML UDCUP PO PRN (15:43)
[2018-07-13] MEDS ORDERED: TETANUS AND DIPHTHERIA TOX/PF 0.5 ML DISP.SYRIN IM SCH (15:45)
[2018-07-13] MEDS ORDERED: Communication Order-Pharmacy FS SCH (15:45)
[2018-07-13] MEDS ORDERED: HYDROmorphone 2 MG/ML VIAL SLOW IVP PRN (15:49)
[2018-07-13] MEDS ORDERED: Ondansetron HCl/PF 4 MG/2 ML Vial IVP PRN (15:49)
[2018-07-13] MEDS ORDERED: Promethazine HCl 25 MG/ML VIAL SLOW IVP PRN (15:49)
[2018-07-13] MEDS ORDERED: Promethazine HCl 25 MG/ML VIAL IM PRN (15:49)
[2018-07-13] MEDS ORDERED: Communication Order-Pharmacy FS PRN (16:00)
[2018-07-13] MEDS ORDERED: PROPOFOL 200 MG/20 ML VIAL ONE (16:07)
[2018-07-13] MEDS ORDERED: Lidocaine 1% PF 5 ML VIAL ONE (16:07)
[2018-07-13] MEDS ORDERED: Labetalol HCl 100 MG/20 ML VIAL ONE (16:07)
[2018-07-13] MEDS ORDERED: Succinylcholine Chloride 20 MG/ML 10 ml SYRINGE FS ONE (16:07)
[2018-07-13] MEDS ORDERED: Glycopyrrolate 0.2 MG/ML 5 ML SYRINGE ONE (16:07)
[2018-07-13] MEDS ORDERED: Dexamethasone 20 MG/5 ML VIAL ONE (16:07)
[2018-07-13 16:53] VITALS: BMI 25.7
[2018-07-13] MEDS: Ketorolac Tromethamine 30 MG/ML VIAL IVP SCH (18:44)
[2018-07-13] MEDS: Aspirin 81 mg Enteric Coated Tablet PO SCH (20:37)
[2018-07-13] MEDS: HYDROcodone/Acetaminophen 5/325 mg Tablet PO PRN (20:41)
[2018-07-13] MEDS ORDERED: Aspirin 81 mg Enteric Coated Tablet PO SCH (21:00)
[2018-07-14 04:07] LABS: #Lymphocytes 0.7 thou/uL (1.20-3.40); #Monocytes 0.2 thou/uL (0.11-0.59); #Neutrophils 6.9 thou/uL (1.40-6.50); %Basophils 0.1 % (0.0-1.0); %Eosinophils 0.3 % (0.0-10.0); %Lymphocytes 8.6 % (21.0-51.0); Hemoglobin 14.1 g/dL (14.0-18.0); Mean Corpuscular HGB CONC 33.2 g/dL (32.0-36.0); Mean Corpuscular Hemoglobin 30.8 pg (27.0-31.0); Mean Corpuscular Volume 92.8 fL (78.0-98.0); Mean Platelet Volume 7.2 fL (7.4-10.4); Platelet Count 342 thou/uL (130-400); RBC Distribution Width 11.9 % (11.5-14.5); Red Blood Cell (RBC) Count 4.57 mill/uL (4.70-6.10); White Blood Cell (WBC) Count 7.7 thou/uL (4.8-10.8)
[2018-07-14 04:14] LABS: PTT 29.4 SEC (22.9-36.1); Prothrombin Time 13.4 SEC (12.0-14.7)
[2018-07-14 04:42] LABS: ALT (SGPT) 18 U/L (8-55); AST (SGOT) 21 U/L (5-34); Albumin 3.9 g/dL (3.5-5.0); Alkaline Phosphatase 86 U/L (40-150); Anion Gap 18 mmol/L (10-20); BUN (Urea Nitrogen) 38 mg/dL (8.4-25.7); Bilirubin, Total 0.7 mg/dL (0.2-1.2); Calc. Creatinine Clearance 54 mL/min (70-130); Calcium 9.4 mg/dL (7.8-10.44); Carbon Dioxide 24 mmol/L (22-29); Chloride 96 mmol/L (98-107); Estimated GFR-MDRD 47; Globulin 3.3 g/dL (2.4-3.5); Glucose 157 mg/dL (70-105); Protein, Total 7.2 g/dL (6.0-8.3); Sodium 134 mmol/L (136-145)
[2018-07-14] MEDS: Ketorolac Tromethamine 30 MG/ML VIAL IVP SCH ×4 (05:59→18:27)
[2018-07-14] MEDS ORDERED: Sulfameth/Trimethoprim DS 800-160mg TAB PO SCH (09:00)
[2018-07-14] MEDS: Terazosin HCl 1 MG CAP PO SCH (09:07)
[2018-07-14] MEDS: Hydrochlorothiazide 25 MG TAB PO SCH (09:08)
[2018-07-14] MEDS: Gabapentin 300 MG CAP PO SCH ×3 (09:09→21:14)
[2018-07-14] MEDS: Lisinopril 20 MG TAB PO SCH (09:09)
[2018-07-14] MEDS: Amlodipine 10 MG TAB PO SCH (09:10)
[2018-07-14] MEDS: Finasteride 5 MG TAB PO SCH (09:10)
[2018-07-14] MEDS: Citalopram 20 MG TAB PO SCH (09:15)
[2018-07-14] MEDS: Aspirin 81 mg Enteric Coated Tablet PO SCH ×2 (11:09→21:14)
[2018-07-14] MEDS: Meloxicam 15 MG TAB PO SCH (11:09)
--- NOTE | 2018-07-14 11:10 | OP ---
DATE OF PROCEDURE: 07/13/2018 PREOPERATIVE DIAGNOSIS: Left hand wound hematoma after previous surgery 1 week ago. POSTOPERATIVE DIAGNOSIS/FINDINGS: Hematoma, layered over his tendon repairs where the tendon repair stitches have been leaving most of his extensor tendon repairs not adequate at this point. PROCEDURES PERFORMED: 1. Debridement of wound. 2. Wound dressed open with wet-to-dry dressings and splint re-applied. TOURNIQUET TIME: 14 minutes. ESTIMATED BLOOD LOSS: Including the hematoma is approximately 25 mL. INDICATIONS: The patient reported to emergency room with increasing excruciating pain over 1 day. H e did not allow me to move his fingers in any direction, has some fluctuance, so we felt he might hav e either an infection or hematoma. For this reason, today, operative evaluation was indicated. CULTURES TAKEN: Yes. One pre-debridement and one post-debridement, aerobic and anaerobic. DESCRIPTION OF PROCEDURE: After successful general LMA technique, limb was prepped and draped. We t hen have the time-out done. The limb was exsanguinated. Tourniquet was inflated to 250 mmHg pressur e. All sutures were removed. We then dissected bluntly and found he had hematoma over the tendon re pair areas and that most of the tendon prolenes had become loose and the ones on the index finger com pletely . In the process of debriding this wound, we also found the extensor indicis digito rum, extensor indicis proprius, extensor carpi ulnaris had stretched its repair and there was complet e loss of competency of the extensor digiti minimi. For this reason, we removed the arthrotom y, and there was no infection in the joint hematoma, so we irrigated the entire wound area with 3 liters of normal saline and Pulsavac pressure. Then, with one liter under bulb syringe pressure, antibiotics inside and then we dressed the wound open. We obtained hemostasis. Once released the to urniquet, held pressure for 5 minutes, and there was no further bleeding. We then placed wet-to-dry dressings over the wound. We would plan to return in 48 hours for wound debridement and possible deanne sure over the re-repair tendons.
[2018-07-14] MEDS: Vancomycin HCl 750 MG in Sodium Chloride 0.9% 250 ML 250 ML IVPB SCH (18:27)
[2018-07-14] MEDS: HYDROcodone/Acetaminophen 5/325 mg Tablet PO PRN (21:13)
[2018-07-14] MEDS ORDERED: Ketorolac Tromethamine 30 MG/ML VIAL IVP PRN (23:59)
[2018-07-15] MEDS: Vancomycin HCl 750 MG in Sodium Chloride 0.9% 250 ML 250 ML IVPB SCH ×2 (05:12→19:59)
[2018-07-15] MEDS: Lisinopril 20 MG TAB PO SCH (09:11)
[2018-07-15] MEDS: Amlodipine 10 MG TAB PO SCH (09:11)
[2018-07-15] MEDS: Hydrochlorothiazide 25 MG TAB PO SCH (09:11)
[2018-07-15] MEDS: Gabapentin 300 MG CAP PO SCH ×3 (09:11→21:12)
[2018-07-15] MEDS: Citalopram 20 MG TAB PO SCH (09:12)
[2018-07-15] MEDS: Aspirin 81 mg Enteric Coated Tablet PO SCH ×2 (09:22→21:12)
[2018-07-15] MEDS: Meloxicam 15 MG TAB PO SCH (09:22)
[2018-07-15] MEDS ORDERED: Sodium Chloride 0.9% 10 ML ONE (14:31)
[2018-07-15] MEDS ORDERED: Bupivacaine PF 0.5% 30 ML VIAL ONE (14:31)
[2018-07-15] MEDS ORDERED: Betamet Acet/Betamet Na Ph 30 MG/5 ML VIAL ONE (14:31)
[2018-07-15] MEDS ORDERED: Bacitracin Zinc Ointment 30 gm TUBE ONE (14:31)
[2018-07-15] MEDS ORDERED: Fentanyl 100 MCG/2 ML VIAL ONE ×2 (14:33→20:33)
[2018-07-15] MEDS ORDERED: Midazolam HCl 2 mg/2 ml Vial ONE (14:33)
[2018-07-15] MEDS ORDERED: PHENYLEPHRINE-NS 100 MCG/ML 10 ML SYRINGE ONE (14:40)
[2018-07-15] MEDS ORDERED: PROPOFOL 200 MG/20 ML VIAL ONE (14:40)
[2018-07-15] MEDS ORDERED: ePHEDrine/0.9% NaCl/PF SYRINGE 50 mg/10 ml ONE (14:40)
[2018-07-15] MEDS ORDERED: Lidocaine 1% PF 5 ML VIAL ONE (14:40)
[2018-07-15] MEDS ORDERED: Ondansetron HCl/PF 4 MG/2 ML Vial ONE (14:40)
[2018-07-15] MEDS ORDERED: Dexamethasone 20 MG/5 ML VIAL ONE (14:40)
[2018-07-15] MEDS ORDERED: HYDROmorphone 2 MG/ML VIAL SLOW IVP PRN (19:57)
[2018-07-15] MEDS ORDERED: Promethazine HCl 25 MG/ML VIAL SLOW IVP PRN (19:57)
[2018-07-15] MEDS ORDERED: Ondansetron HCl/PF 4 MG/2 ML Vial IVP PRN (19:57)
[2018-07-15] MEDS ORDERED: Promethazine HCl 25 MG/ML VIAL IM PRN (19:57)
[2018-07-15] MEDS ORDERED: Ketorolac Tromethamine 30 MG/ML VIAL ONE (20:09)
[2018-07-15] MEDS ORDERED: Ketorolac Tromethamine 30 MG/ML VIAL IVP PRN (20:24)
[2018-07-15] MEDS ORDERED: Meperidine HCl/PF 25 MG/ML VIAL IM PRN (20:24)
[2018-07-15] MEDS: Finasteride 5 MG TAB PO SCH (21:12)
[2018-07-15] MEDS: Terazosin HCl 1 MG CAP PO SCH (21:12)
[2018-07-16] MEDS: traMADol HCl 50 MG TAB PO PRN ×2 (00:20→09:07)
[2018-07-16] MEDS: HYDROcodone/Acetaminophen 5/325 mg Tablet PO PRN ×4 (01:41→22:28)
[2018-07-16 05:18] LABS: Vancomycin, Trough 11.2 ug/mL
[2018-07-16] MEDS: Vancomycin HCl 1 GM in Premix Bag 1 BAG IVPB SCH ×2 (06:15→17:29)
--- NOTE | 2018-07-16 08:32 | OP ---
DATE OF SURGERY: 07/15/2018 PREOPERATIVE DIAGNOSES: 1. Multiple digitorum comminus ruptures. 2. Extensor indicis proprius and extensor digiti minimi rupture. 3. Extensor carpi ulnaris rupture. 4. A 15 cm wound with wound has necrosis. POSTOPERATIVE DIAGNOSES: 1. Multiple digitorum comminus ruptures. 2. Extensor indicis proprius and extensor digiti minimi rupture. 3. Extensor carpi ulnaris rupture. 4. A 15 cm wound with wound has necrosis. FINDINGS: No evidence of infection or hematoma. His wound was opened and ongoing dressing changes f or 48 hours, but the tendon injuries as described above it still existed and the superficial ulnar ne rve had and there was not a suture hole in the repair for microscopic procedure over a week ago. PROCEDURES PERFORMED: 1. Left wound debridement. 2. A 13 cm wound closure. 3. A 2 x 2 cm full-thickness skin graft corresponded to the amount of wound edge necrosis that was r esected. 4. Extensor digitorum communis repaired to the following things, A. Index finger. B. Middle finger. C. Ring finger. D. Small finger. 5. Extensor digiti minimi repair. 6. Extensor indicis proprius repair. 7. Extensor carpi ulnaris graft harvested in the radial half of flexor carpi radialis over an 8 cm a jovany distal forearm. TOURNIQUET TIME: 35 minutes. SPECIMENS REMOVED: None. ESTIMATED BLOOD LOSS: 25 mL. FINDINGS: No gross infection or hematoma contaminant. DESCRIPTION OF PROCEDURE: After successful general LMA technique, the limb was prepped and draped. The patient then had the wound inspected, we found the previous tendons, removed any previous Prolene sutures, resected the ends, 1 mm on either side, and then prepared the wound. We then irrigated the wound, we debrided 2 separate 1.5 x 2 cm areas of the wound edge necrosis because there were darkene d eschars and had no blood supply. We debrided back to bleeding tissue. Then, we could irrigate it with 2 liters normal saline on bulb syringe pressure with antibiotics inside. We found extensor carpi ulnaris to be the only tendon that did not reach back to its origin and exten sor carpi ulnaris was cut with approximate oblique 1.5 cm area. For this reason, it was obvious the graft would be needed here. We began to repair the superficial ulnar nerve is primary trunk, also was probably secondar y to manipulation to perform the debridement that listed in the last procedure. First, we repaired pau maddox extensor tendons. At this time, we used a Pulliam-Minh technique with multi 6-strand repair. Each of the tendons beginning with the index finger while holding each MP joint, PIP joint hyperextended qing roximately 10 degrees. Then, once we had done the extensor digitorum communis to the index, long, ri ng and small finger using this method, which includes oversew with a 6-0 Prolene after a flexor tendo n protocol, we then did the same repair for extensor indicis proprius and extensor digiti minimi. No gap formation was seen with the wrist at 30 degrees of flexion, MP at 30 degrees of flexion, so we f elt was stable repair. For rest of the procedure, however, the wrist was at 20 degrees dorsiflexion, the MP joint has had 0 extension. We now prepared to repair the extensor carpi ulnaris and again it had almost a 15 mm gap. For this r huong, in order to fill the 2-cm gap, a tendon that was 8 cm was harvested, leaving this enough for P ulvertaft type weave on both edges. This was done by making two incisions identified at the extensor carpi radialis tendon protecting the median nerve as well as radial artery and harvesting the radial one half of the tendon over 8 cm area. We then used a tendon parker first at the distal end weaving it twice Pulvertaft weave and sutured it all to itself in the fascia and then we did the same with pau maddox tendon under pressure x3 with the entire repair took place outside the sheath. We then kept the w rist in 20 degrees dorsiflexion, MP of 5 degrees dorsiflexion. Remainder of the case and dressed it this way to include a long-arm splint in this position. Finally, there was no gap formation seen at the extensor carpi ulnaris repair. We brought the microscope on to the field. Here, we also removed old nylon suture, removed approxima tely 1 mm of the superficial ulnar nerve was made on both sides and then re-repaired under micr oscope magnification using 8-0 nylon. All of the branches of superficial ulnar had been destroyed we re not repairable. Tourniquet was now totally deflated. Hemostasis was obtained. We then realized that the wound itsel f, was trying to close, could not match up completely because in the corners of the zigzag, we had re moved necrotic pieces, so we rotated the flaps appropriately, made sure that the area that was not co jesusita was over muscle and fascia not over nerve or tendon repairs. Then, when we saw this, we needed a 2 to 2.5 cm long by 1.5 cm wide graft, so we selected a full-thickness [facility] ante[facility]ubital foss[facility]. We closed after harvesting, we defatted it, placed four sutures to hold in p lace with 3-0 nylon, circumferentially closed to the defect with running 5-0 chromic and then bolster ed it with Adaptic, bacitracin, as well as tied the bolster sutures over, cotton ball soaked with min eral oil. Then, we placed the probes and bacitracin, Adaptic, and all other wounds include the hurtado r wounds and the harvest wound was closed/donor site was closed with running 4-0 Monocryl, Dermabond for the skin and then dressed without ointment. The patient then had a long arm splint applied at ne utral position at the elbow. The wrist was then 10 degrees of dorsiflexion, 15 degrees dorsiflexion of the MP joint and had 0 degrees extension and the split all the way out to the nail bed. All digit s were pink and the patient left the operating room without evidence of anesthetic or operative compl ication.
[2018-07-16] MEDS: Hydrochlorothiazide 25 MG TAB PO SCH (09:06)
[2018-07-16] MEDS: Aspirin 81 mg Enteric Coated Tablet PO SCH ×2 (09:06→19:48)
[2018-07-16] MEDS: Citalopram 20 MG TAB PO SCH (09:06)
[2018-07-16] MEDS: Meloxicam 15 MG TAB PO SCH (09:06)
[2018-07-16] MEDS: Amlodipine 10 MG TAB PO SCH (09:07)
[2018-07-16] MEDS: Lisinopril 20 MG TAB PO SCH (09:09)
[2018-07-16] MEDS: Gabapentin 300 MG CAP PO SCH ×3 (09:09→19:48)
[2018-07-16] MEDS: Terazosin HCl 1 MG CAP PO SCH (19:48)
[2018-07-16] MEDS: Finasteride 5 MG TAB PO SCH (19:48)
--- NOTE | 2018-07-16 21:16 | RAD ---
THREE VIEWS CERVICAL SPINE: 07/16/18 HISTORY: Postop complication, right sided neck pain, vertebral pain right neck. COMPARISON: None available. FINDINGS: C1 to the cervicothoracic junction is seen on the lateral view. Multilevel osteophytes are seen and t here is narrowing of the intervertebral disc spaces at multiple levels. The vertebral body heights ar e within normal limits. There does appear to be trace retrolisthesis of C4 on C5 and C5 on C6 and to a lesser degree C6 on C7 which may be attributable to degenerative changes. There is trace anterolist hesis of C2 on C3 with facet degenerative changes seen at this level. No fracture is identified on th is exam. The odontoid is partially obscured on the odontoid view due to overlying osseous structures but has a grossly normal appearance on the lateral view. Prevertebral soft tissues are slightly promi nent but probably within normal limits. No other findings. IMPRESSION: Multilevel degenerative changes in the cervical spine with trace anterolisthesis of C2 on C3 and sugg estion of slight retrolisthesis of C4 on C5, C5 on C6 and C6 on C7, and these findings are likely att ributable to degenerative changes. POS: MICHAEL
[2018-07-17] MEDS: traMADol HCl 50 MG TAB PO PRN ×3 (01:02→15:49)
[2018-07-17] MEDS: HYDROcodone/Acetaminophen 5/325 mg Tablet PO PRN ×4 (02:37→19:55)
[2018-07-17] MEDS: Vancomycin HCl 1 GM in Premix Bag 1 BAG IVPB SCH ×2 (06:29→18:28)
[2018-07-17] MEDS: Hydrochlorothiazide 25 MG TAB PO SCH (09:11)
[2018-07-17] MEDS: Meloxicam 15 MG TAB PO SCH (09:11)
[2018-07-17] MEDS: Citalopram 20 MG TAB PO SCH (09:11)
[2018-07-17] MEDS: Aspirin 81 mg Enteric Coated Tablet PO SCH ×2 (09:11→19:52)
[2018-07-17] MEDS: Lisinopril 20 MG TAB PO SCH (09:11)
[2018-07-17] MEDS: Amlodipine 10 MG TAB PO SCH (09:11)
[2018-07-17] MEDS: Gabapentin 300 MG CAP PO SCH ×3 (09:12→19:52)
--- NOTE | 2018-07-17 11:11 | MRI ---
NONCONTRAST MRI CERVICAL SPINE: Date: 07/17/18 HISTORY: Left arm and neck pain. Vertebral pain right neck postoperatively. FINDINGS: There is mild cerebellar volume loss. Cervicothoracic junction has a normal appearance. Normal signal intensity is demonstrated in the bone marrow. There is trace anterolisthesis of C2 on C 3, and as noted on plain film evaluation 1 day ago, there is suggestion of trace retrolisthesis of C4 on C5, C5 on C6, and C6 on C7. There is narrowing of the intervertebral disc spaces at these levels, including the C3-4 level. C2-3 Level: There are prominent facet hypertrophic changes seen on the left resulting in mild left-sided neural f oraminal narrowing. The right neural foramen and central spinal canal are patent. C3-4 Level: There is a broad based disc osteophyte complex with uncinate process hypertrophy on the right. There is mild bilateral neural foraminal narrowing, greater on the right. C4-5 Level: There is a broad based disc osteophyte complex with uncinate process hypertrophy. There is narrowing of the ventral subarachnoid space with mild generalized narrowing of the central spinal canal. There is moderate to severe bilateral neural foraminal narrowing present. C5-6 Level: There is a broad based disc osteophyte complex, greater on the right. There are facet degenerative ch anges present on the right. Findings result in mild to moderate right-sided neural foraminal narrowin g. The left neural foramen is patent. There is mild effacement of the ventral subarachnoid space at t his level. C6-7 Level: There is a mild broad based disc osteophyte complex with uncinate process hypertrophy on the left. Th ere is severe left-sided neural foraminal narrowing with mild to moderate right-sided neural foramina l narrowing. There is mild effacement of the ventral subarachnoid space. C7-T1 Level: There is no significant disc bulge or disc herniation. Prominent facet degenerative changes are seen on the left, which results in moderate narrowing of the left neural foramen. The right neural foramen and central spinal canal are patent. C1-2 Level: There is no disc bulge or disc herniation. Central spinal canal and neural foramina are patent. Focal increased T2-weighted signal intensity structure seen in right neural foramen, probably related to d ilated nerve root sleeve. There are mild disc osteophyte complexes seen at the C2-3 and C3-4 levels, only seen on sagittal imag ing, which does narrow the ventral subarachnoid space at these levels. There is suggestion of moderat e left-sided neural foraminal narrowing based on the sagittal imaging at the C2-3 level. Right neural foramen at this level, as well as at the C3-4 level, appear patent. IMPRESSION: Multilevel degenerative changes in the cervical spine as described above, including trace anterolisth esis of C2 on C3 and trace retrolisthesis of C4 on C5, C5 on C6, and C6 on C7. POS: [facility]
[2018-07-17 17:18] LABS: Vancomycin, Trough 11.1 ug/mL
[2018-07-17] MEDS: Finasteride 5 MG TAB PO SCH (19:52)
[2018-07-17] MEDS: Terazosin HCl 1 MG CAP PO SCH (19:52)
[2018-07-18] MEDS: HYDROcodone/Acetaminophen 5/325 mg Tablet PO PRN ×4 (00:05→22:20)
[2018-07-18] MEDS: traMADol HCl 50 MG TAB PO PRN ×3 (03:19→18:35)
[2018-07-18] MEDS: Vancomycin HCl 1 GM in Premix Bag 1 BAG IVPB SCH ×2 (06:08→18:31)
--- NOTE | 2018-07-18 07:20 | PRG ---
DATE OF SERVICE: 07/18/2018 I personally examined the patient and reviewed records and imaging and agree with the notes of Mauro Johnson PA-C. Briefly Daquan Alberto is a 58-year-old gentleman who recently had an accidental injury with a skill sa w cutting into his left wrist and hand. He has been through a number of operations and tendon repair s and debridement and he is recovering from 2 of those during this hospital admission. Yesterday he was speaking with his physicians and had relayed to them that he had some tingling and numbness just below the right ear. It progressed to numbness over the entire face, right arm, and right body and r ight leg. MR imaging of the cervical spine was performed and his multilevel cervical disk disease an d Neurosurgery was consulted. On examination, I do not find evidence of significant cervical radiculopathy. MR imaging shows disk disease affecting the right neural foramina at C3-4, C4-5 and the left foramen at C6-7. There is no cord compression at all. Spinal alignment looks reasonable. There is adequate space for the cord an d CSF in the canal. The numbness that Mr. Alberto describes is paresthesias on the entire right side of the body. These par esthesias are not associated with headache. He does not have a history of migraine, it came on rathe r abruptly yesterday. I do not believe this is coming from the cervical spine and I have not recomme nded any surgery there. However, I think we owe it to Mr. Alberto to get one MR image of the brain to ensure there are no lesion s that could be causing some mild sensory seizure-like activity or neurological dysfunction that woul d affect the entire right side of the body. I am not very suspicious that we will find anything. Th e patient may need reassurance rather than operative intervention.
--- NOTE | 2018-07-18 09:23 | CON ---
DATE OF CONSULTATION: 07/18/2018 HISTORY OF PRESENT ILLNESS: Mr. Alberto came into the emergency department approximately 1 week ago, he cut his hand with a skill saw while working on his house. He has undergone several surgeries to rep air his hand. Neurosurgery is being consulted for numbness and tingling on the right side of his bod y. The physicians working with him obtained a cervical spine showing multiple levels of cervical dis k disease. Neurosurgery has been consulted for this. As I see Mr. Alberto in his hospital room he is r esting comfortably. His left hand is splinted and wrapped following surgery. He does not appear to be in any visible distress. He states that he has had balance issues for many years and that has got ten worse since he has been on meds following the surgery. He states that he gets numbness and tingl ing in his right hand, the entire hands and the back side of the arm. He states that he has numbness in his right lower extremity from his foot to his knee circumferentially. He also states that he conde s some numbness on the right side of his face. The patient states that he has had these symptoms for quite some time, but he states that they are getting worse recently. REVIEW OF SYSTEMS: The patient denies any fever or chills. He denies any difficulty swallowing or s ore throat. He denies any chest pain or shortness of breath. No abdominal pain, no constipation or diarrhea. He has pain in his left arm. He states that he has numbness and tingling on the right ignacio e of his body. No headache. PAST MEDICAL HISTORY: He has hypertension and BPH. PAST SURGICAL HISTORY: 1. L4-L5 lumbar fusion in 1990. 2. Right knee replacement. 3. Left hand surgery last week. PSYCHIATRIC HISTORY: Anxiety and depression. SOCIAL HISTORY: The patient states that he drinks beer daily. The patient denies drug use, however, in the ED report, states that he abuses cocaine. He also is a current tobacco user of chewing tobac co. ALLERGIES: No known drug allergies. CURRENT HOME MEDICATIONS: Lisinopril, amlodipine, hydrochlorothiazide, Meloxicam, citalopram, finast eride. PHYSICAL EXAMINATION: VITAL SIGNS: Temperature is 98.7, heart rate 70, respirations 18, O2 sats 97% on room air, blood pre ssure is 142/87. GENERAL: He is alert and oriented. He is afebrile, nontoxic. He is resting comfortably in his hosp ital bed, does not appear to be in visible distress. HEENT: Head is normocephalic, atraumatic. Pupils are equal, round, react to light. Extraocular mov ements are intact. Hearing is intact. Moist mucous membranes. Trachea is midline. NECK: Patient has normal range of motion of his neck. He is tender to palpation at approximately C5 . He states it is mildly painful at L3, no sharp. He states that things are more sore laterally in the musculature worse on the right than the left. MUSCULOSKELETAL: He has 5/5 strength on the right upper extremity, deltoids, biceps, triceps, wrist extension, finger extension and finger intrinsics. His left upper extremity is currently wrapped fol lowing surgery. He does have mild sensation. The patient states that his sensation on his right hand is decreased on the back of his hand along the back of his arm all the way up to his shoulder. Lowe r extremities; 5/5 strength in bilateral hip flexion, knee flexion, knee extension, dorsi flexion, pl bryce flexion. He states that on the right side he has decreased sensation from his knee down to his foot circumferentially. No clonus noted. NEUROLOGIC: The patient is alert and oriented. Cranial nerves II-XII are tested and intact. He is moving all 4 extremities well. There is no focal motor deficits. Sensation is decreased in the righ t side of his body. IMAGING: Cervical spine MRI has been obtained which shows multilevel degenerative changes and cervic al spine trace anterolisthesis of C2-3 and trace retrolisthesis of C4-5, C5-6 and C6-7. ASSESSMENT AND PLAN: On examination, there is no evidence of significant cervical radiculopathy or m yelopathy. The MRI findings show disk disease affecting the right neural foramen at C3-4 and 4-5 and the left C6-7. There is no central cord compression and the spinal alignment looks reasonable. The re was adequate ____ in the cord and CSF in the canal. Given that Mr. Alberto describes paresthesias in the entire right side of his body, these cannot be asso ciated with cervical stenosis and would likely have to be coming from the brain. We would like to or inez a brain MRI to ensure that there are no lesions that could be causing these mild sensory issues. The likelihood of finding anything on the brain MRI is unlikely and the patient will be reassured no operative intervention is necessary at this time.
[2018-07-18] MEDS ORDERED: Gadobenate Dimeglumine 529 MG/1 ML (20ML VIAL) ONE ×2 (10:37→10:38)
[2018-07-18] MEDS: Lisinopril 20 MG TAB PO SCH (10:41)
[2018-07-18] MEDS: Aspirin 81 mg Enteric Coated Tablet PO SCH ×2 (10:41→22:14)
[2018-07-18] MEDS: Gabapentin 300 MG CAP PO SCH ×3 (10:41→22:14)
[2018-07-18] MEDS: Hydrochlorothiazide 25 MG TAB PO SCH (10:42)
[2018-07-18] MEDS: Meloxicam 15 MG TAB PO SCH (10:42)
[2018-07-18] MEDS: Amlodipine 10 MG TAB PO SCH (10:42)
[2018-07-18] MEDS: Citalopram 20 MG TAB PO SCH (10:43)
--- NOTE | 2018-07-18 13:32 | MRI ---
MRI OF THE [place] WITHOUT AND WITH CONTRAST: COMPARISON: None. HISTORY: Right-sided body paresthesias and sensory alteration. TECHNIQUE: Multiplanar, multisequence MR images were obtained of the brain without and with IV contrast. FINDINGS: There are scattered foci of high FLAIR signal in the subcortical and periventricular white matter, li ambar secondary to small-vessel ischemic disease. No restricted diffusion is seen to suggest an acute infarction. There is no evidence of hydrocephalus, intracranial hemorrhage, or extraaxial fluid collection. The expected flow voids are present. The corpus callosum, pituitary, and craniocervical junction are unr emarkable. The calvarium and overlying soft tissues are unremarkable. Fluid is seen in the right mastoid air ce lls. The paranasal sinuses are well aerated. No abnormal enhancement is seen on this examination. IMPRESSION: Small-vessel ischemic disease without acute intracranial abnormality. POS: [facility]
--- NOTE | 2018-07-18 14:57 | PRG ---
DATE OF SERVICE: 07/18/2018 I reviewed new imaging on Daquan Alberto, looked at an MRI scan of the brain. The symptoms, he describ es, which are paresthesias and hyperesthesia of the entire right side of the body. Cannot be explain ed by his neck or brain imaging. I do not think there is anything irritating in the cortex of the le ft hemisphere near the primary sensory cortex that might be giving him some odd discharges or differe ntial interpretation of the skin stimuli. I do not see any cervical cord compression that would affe ct his right hemibody. There is moderate foraminal stenosis at multiple levels including C3-4, C4-5, and C5-6 on the right and C6-7 on the left, but none of these are severe, and they do not match the symptoms that he described to me. I do not find any myelopathy on exam, and I would not expect it gi sophia the lack of compression of the cord. I do not think he warrants neurosurgical intervention michael alvarenga. If after recovery from his hand surgery continues to have finger extensor and triceps weakness , then a C7 radiculopathy on the left side could be entertained and an ACDF for that single segment m ight be worthwhile, but I would like to see him in clinic and discuss it at the completion of his kailyn gical recovery.
[2018-07-18] MEDS: Terazosin HCl 1 MG CAP PO SCH (22:14)
[2018-07-18] MEDS: Finasteride 5 MG TAB PO SCH (22:15)
[2018-07-18] MEDS: Clindamycin 150 MG CAP PO SCH (22:15)
[2018-07-19] MEDS: traMADol HCl 50 MG TAB PO PRN ×4 (04:20→23:56)
[2018-07-19] MEDS: HYDROcodone/Acetaminophen 5/325 mg Tablet PO PRN ×3 (06:22→21:10)
[2018-07-19] MEDS: Lisinopril 20 MG TAB PO SCH (09:02)
[2018-07-19] MEDS: Amlodipine 10 MG TAB PO SCH (09:02)
[2018-07-19] MEDS: Hydrochlorothiazide 25 MG TAB PO SCH (09:03)
[2018-07-19] MEDS: Clindamycin 150 MG CAP PO SCH ×3 (09:03→21:10)
[2018-07-19] MEDS: Meloxicam 15 MG TAB PO SCH (09:03)
[2018-07-19] MEDS: Aspirin 81 mg Enteric Coated Tablet PO SCH ×2 (09:03→21:10)
[2018-07-19] MEDS: Citalopram 20 MG TAB PO SCH (09:03)
[2018-07-19] MEDS: Gabapentin 300 MG CAP PO SCH ×3 (09:03→21:10)
--- NOTE | 2018-07-19 16:08 | EKG ---
Test Reason : Blood Pressure : / mmHG Vent. Rate : 081 BPM Atrial Rate : 081 BPM P-R Int : 204 ms QRS Dur : 098 ms QT Int : 372 ms P-R-T Axes : 053 -08 128 degrees QTc Int : 432 ms Normal sinus rhythm Possible Left atrial enlargement T wave abnormality, consider inferior ischemia T wave abnormality, consider anterolateral ischemia Abnormal ECG Confirmed by DENI HERNANDEZ MD ([id number]), industrial editor DEANGELO CONRAD ([id number] on 07/19/2018 4:07:49 PM Referred By: Confirmed By:DENI HERNANDEZ MD
[2018-07-19] MEDS: Finasteride 5 MG TAB PO SCH (21:10)
[2018-07-19] MEDS: Terazosin HCl 1 MG CAP PO SCH (21:10)
[2018-07-20] MEDS: HYDROcodone/Acetaminophen 5/325 mg Tablet PO PRN ×4 (01:07→18:14)
[2018-07-20] MEDS: Hydrochlorothiazide 25 MG TAB PO SCH (08:23)
[2018-07-20] MEDS: Clindamycin 150 MG CAP PO SCH ×3 (08:23→20:22)
[2018-07-20] MEDS: Gabapentin 300 MG CAP PO SCH ×3 (08:23→20:21)
[2018-07-20] MEDS: Lisinopril 20 MG TAB PO SCH (08:24)
[2018-07-20] MEDS: Meloxicam 15 MG TAB PO SCH (08:24)
[2018-07-20] MEDS: Citalopram 20 MG TAB PO SCH (08:25)
[2018-07-20] MEDS: Aspirin 81 mg Enteric Coated Tablet PO SCH ×2 (08:25→20:22)
[2018-07-20] MEDS: Amlodipine 10 MG TAB PO SCH (08:25)
[2018-07-20] MEDS: traMADol HCl 50 MG TAB PO PRN (11:10)
[2018-07-20 17:56] LABS: Vancomycin, Trough 1.2 ug/mL
[2018-07-20] MEDS: Finasteride 5 MG TAB PO SCH (20:22)
[2018-07-20] MEDS: Terazosin HCl 1 MG CAP PO SCH (20:22)
[2018-07-21] MEDS: HYDROcodone/Acetaminophen 5/325 mg Tablet PO PRN ×3 (00:49→12:17)
[2018-07-21] MEDS: traMADol HCl 50 MG TAB PO PRN ×3 (03:18→21:31)
[2018-07-21] MEDS: Citalopram 20 MG TAB PO SCH (08:53)
[2018-07-21] MEDS: Aspirin 81 mg Enteric Coated Tablet PO SCH ×2 (08:53→21:15)
[2018-07-21] MEDS: Meloxicam 15 MG TAB PO SCH (08:53)
[2018-07-21] MEDS: Clindamycin 150 MG CAP PO SCH ×2 (08:54→14:51)
[2018-07-21] MEDS: Lisinopril 20 MG TAB PO SCH (08:54)
[2018-07-21] MEDS: Amlodipine 10 MG TAB PO SCH (08:54)
[2018-07-21] MEDS: Hydrochlorothiazide 25 MG TAB PO SCH (08:54)
[2018-07-21] MEDS: Gabapentin 300 MG CAP PO SCH ×3 (08:55→21:16)
[2018-07-21] MEDS: Finasteride 5 MG TAB PO SCH (21:15)
[2018-07-21] MEDS: Terazosin HCl 1 MG CAP PO SCH (21:16)
[2018-07-21] MEDS: Temazepam 15 MG CAP PO PRN (22:23)
[2018-07-22] MEDS: Lisinopril 20 MG TAB PO SCH (08:24)
[2018-07-22] MEDS: Citalopram 20 MG TAB PO SCH (08:24)
[2018-07-22] MEDS: Meloxicam 15 MG TAB PO SCH (08:24)
[2018-07-22] MEDS: Aspirin 81 mg Enteric Coated Tablet PO SCH ×2 (08:24→20:50)
[2018-07-22] MEDS: Amlodipine 10 MG TAB PO SCH (08:24)
[2018-07-22] MEDS: Hydrochlorothiazide 25 MG TAB PO SCH (08:24)
[2018-07-22] MEDS: Gabapentin 300 MG CAP PO SCH ×3 (08:24→20:51)
[2018-07-22] MEDS: HYDROcodone/Acetaminophen 5/325 mg Tablet PO PRN ×3 (08:28→23:20)
[2018-07-22] MEDS: traMADol HCl 50 MG TAB PO PRN ×2 (13:22→20:54)
[2018-07-22] MEDS: Finasteride 5 MG TAB PO SCH (20:51)
[2018-07-22] MEDS: Terazosin HCl 1 MG CAP PO SCH (20:51)
[2018-07-22] MEDS: Temazepam 15 MG CAP PO PRN (23:20)
[2018-07-23] MEDS: Lisinopril 20 MG TAB PO SCH (08:24)
[2018-07-23] MEDS: Aspirin 81 mg Enteric Coated Tablet PO SCH ×2 (08:24→20:09)
[2018-07-23] MEDS: Hydrochlorothiazide 25 MG TAB PO SCH (08:24)
[2018-07-23] MEDS: Amlodipine 10 MG TAB PO SCH (08:24)
[2018-07-23] MEDS: Meloxicam 15 MG TAB PO SCH (08:24)
[2018-07-23] MEDS: Citalopram 20 MG TAB PO SCH (08:24)
[2018-07-23] MEDS: Gabapentin 300 MG CAP PO SCH ×3 (08:24→20:08)
[2018-07-23] MEDS: HYDROcodone/Acetaminophen 5/325 mg Tablet PO PRN ×3 (08:27→19:00)
[2018-07-23] MEDS: traMADol HCl 50 MG TAB PO PRN (14:25)
[2018-07-23] MEDS ORDERED: traMADol HCl 50 MG TAB PO PRN (17:55)
[2018-07-23] MEDS: Finasteride 5 MG TAB PO SCH (20:09)
[2018-07-23] MEDS: Terazosin HCl 1 MG CAP PO SCH (20:15)
[2018-07-24] MEDS: HYDROcodone/Acetaminophen 5/325 mg Tablet PO PRN ×4 (00:46→15:25)
[2018-07-24] MEDS: Temazepam 15 MG CAP PO PRN (00:46)
--- NOTE | 2018-07-24 09:23 | DIS ---
HOSPITAL DISCHARGE AND TRANSFER SUMMARY PRESENT FACILITY: [facility] in [place], [place]. TRANSFERRED FACILITY: The patient has a bed given to him at [facility] for psychiatric care. ADMISSION DIAGNOSES: 1. Rupture of tendons repaired 10 days prior due to probable activity at home. 2. Possible hematoma. DISCHARGE DIAGNOSES: 1. Multiple ruptures of the extensor digitorum communis to all the lesser digits as well as extensor indicis proprius and extensor digiti minimi, as well as the extensor carpi ulnaris repair. 2. Hematoma, requiring a wound debridement and 2-stage closure and secondary repair once no gross in fection was proved. 3. Acute postoperative psychosis: May be subacute in that the patient reported to us that he feels that his sister, her tampering with the family estate after the of their mother, who they have in common (they have different fathers), may have been the cause of his initial accident, he feels ex treme anger towards her, does not have a good reality testing when discussing her and her relationshi p with his mother and family estate and felt that if he was allowed to leave the hospital, he would d efinitely hurt his sister. It is for this reason, possible psychosis with harm to other ideation, th at we seek inpatient psychiatric care. The patient is a [facility]. He preferred [facility]. HOSPITAL COURSE: Immediately upon admission, on the day of admission because of fear of hematoma and possible infection, he went to the operating room. We evacuated the hematoma and we noted that he h ad ruptured all his tendon repairs. This was a zone 6 just distal to the retinaculum at the wrist. For this reason, he had the wound irrigated, the tendons were identified. He also had his nerve repa ired become questionable superficial ulnar nerve and therefore, after irrigation and debridement on t he day of admission, 07/13/2018, the patient was admitted with wound care for 2 days and then returne d to operating room on 07/16/2018, where he had another debridement, and we repaired systematically a nd primarily all the re-ruptured tendons at this time using a 6-strand Pulliam-Minh technique suture exce pt for the extensor carpi ulnaris, which was not recent, we performed a 3-cm graft which was woven us ing Pulvertaft technique. We also re-repaired his superficial ulnar nerve repair under microscope an d partially repaired the retinaculum. He responded well to this and on postop day #10, which is today 07/23/2018, he had been accepted into the [facility] and we received a call about placement. This day, 07/23/2018, I inspected his wounds which were clean, dry, had no infection. He had a small discoloration of the left elbow which was not there on the lateral epicondyle before the surgery. He has a palmar w ound from harvest of the flexor carpi radialis tendon for tendon grafting, his dorsum wound is withou t abnormality. He was placed in a splint with the wrist at approximately 25 degrees of dorsiflexion, the MP joints at 0. It was split to a level of the PIP joint with a small amount of PIP joint motio n allowed in the splint. The thumb never had injury and was not included. DISCHARGE DIAGNOSES: See above. DISCHARGE RECOMMENDATIONS: He should have a regular diet. He should be admitted to inpatient psychi atric care and treated as needed because of his definite psychosis, probably subacute since he has a history of past psychiatric disease and was on previous medicine, as well as his ideation of harm to others (his sister). I have discussed this with him almost daily when changing his dressing. He sti ll feels the animosity and the anger and potential need to act on that anger, so we expect that he wi ll be transferred without much more delay. He should remain in the short-arm cast, which he is not very comfortable for 3 weeks and follow up with Dr. Angeles in his office, where we will remove splint and begin more exercise. The patient does have his donor site from his skin graft from his third procedure/second one this hos pital visit, which has fibrin glue on it and should only have Band-Aid changed twice a week.
[2018-07-24] MEDS: Lisinopril 20 MG TAB PO SCH (09:32)
[2018-07-24] MEDS: Meloxicam 15 MG TAB PO SCH (09:33)
[2018-07-24] MEDS: Amlodipine 10 MG TAB PO SCH (09:33)
[2018-07-24] MEDS: Citalopram 20 MG TAB PO SCH (09:33)
[2018-07-24] MEDS: Gabapentin 300 MG CAP PO SCH ×2 (09:33→15:21)
[2018-07-24] MEDS: Hydrochlorothiazide 25 MG TAB PO SCH (09:33)
[2018-07-24] MEDS: Aspirin 81 mg Enteric Coated Tablet PO SCH (09:34)
[2018-07-24 12:35] LABS: Anion Gap 11 mmol/L (10-20); BUN (Urea Nitrogen) 21 mg/dL (8.4-25.7); Calc. Creatinine Clearance 98 mL/min (70-130); Calcium 9.1 mg/dL (7.8-10.44); Carbon Dioxide 29 mmol/L (22-29); Chloride 102 mmol/L (98-107); Estimated GFR-MDRD Greater than 90; Glucose 87 mg/dL (70-105); Potassium 3.5 mmol/L (3.5-5.1); Sodium 138 mmol/L (136-145)
[2018-07-24 17:13] VITALS: BP 147/91; TEMP 97.8
== END 2018-07-24 18:40 | DRG 513 ==
LOC: ERS 02:16 → SDC 13:15 → SURG B 15:14
PROVIDERS: ADMIT Orthopaedic Surgery Hand Surgery; ATTEND Orthopaedic Surgery Hand Surgery
PROC: 0LB80ZZ Excision of Left Hand Tendon, Open Approach (ICD-10-PCS; principal; 2018-07-13)
PROC: 0LQ80ZZ Repair Left Hand Tendon, Open Approach (ICD-10-PCS; 2018-07-15)
PROC: 0HR Skin and Breast, Replacement (ICD-10-PCS; 2018-07-15)
PROC: 0LB80ZZ Excision of Left Hand Tendon, Open Approach (ICD-10-PCS; 2018-07-15)
DX: S66.311A Strain of extensor muscle, fascia and tendon of left index finger at wrist and hand level, initial encounter (principal); L76.32 Postprocedural hematoma of skin and subcutaneous tissue following other procedure; S66.313A Strain of extensor muscle, fascia and tendon of left middle finger at wrist and hand level, initial encounter; S66.315A Strain of extensor muscle, fascia and tendon of left ring finger at wrist and hand level, initial encounter; S66.317A Strain of extensor muscle, fascia and tendon of left little finger at wrist and hand level, initial encounter; Y92.009 Unspecified place in unspecified non-institutional (private) residence as the place of occurrence of the external cause; Y83.9 Surgical procedure, unspecified as the cause of abnormal reaction of the patient, or of later complication, without mention of misadventure at the time of the procedure; Y82.8 Other medical devices associated with adverse incidents; F29 Unspecified psychosis not due to a substance or known physiological condition; F41.8 Other specified anxiety disorders; W45.8XXD Other foreign body or object entering through skin, subsequent encounter; X50.0XXA Overexertion from strenuous movement or load, initial encounter
CPT/HCPCS: 29125; 36415; 70553; 72040; 72141; 80048; 80053; 80202; 80306; 80307; 81003; 82550; 84443; 85025; 85610; 85730; 87070; 87205; 93005; 96365; 96372; 96375; 96376; 99406; A4216; A9579; J0131; J0702; J1100; J1885; J2001; J2175; J2250; J2270; J2405; J2704; J3010; J3370; J3490; J7050; S0020